=== PATIENT | female | born 1975 | race Caucasian/White ===

== ENCOUNTER 2021-10-07 00:43 | Emergency (ER) | payer OTHER, SELFPAY ==
[2021-10-07] VITALS (18 sets, daily range): BP systolic 113–152; BP diastolic 67–93; PULSE 100–157; RESP 12–28; TEMP 37.7–40.2; O2SAT 93–98
--- NOTE | ~2021-10-07 | XR_ITS ---
EXAMINATION: XR chest 1V portable DATE: 10/07/2021 01:54 INDICATION: Fever. Nausea and vomiting. TECHNIQUE: A single frontal view of the chest was obtained. COMPARISON: None. FINDINGS: The chest demonstrates clear lungs without pneumonia, pleural effusion, or pneumothorax. Th e heart size is normal. IMPRESSION: 1. No acute cardiopulmonary disease. Reviewed, dictated and finalized at location A.
--- NOTE | 2021-10-07 00:55 | ED.NAVMDI ---
HPI - Nausea/Vomiting/Diarrhea General Chief complaint: Nausea/Vomiting/Diarrhea Stated complaint: possible covid Time Seen by Provider: 10/07/21 00:55 Source: patient History of Present Illness HPI Narrative: 46-year-old female with DM presents to the ER with a 1 day history of -- nausea with vomiting -- fever -- profuse sweating -- diffuse abdominal pain --Headache history of recent exposure to COVID MD elicited complaint: nausea, vomiting and abdominal pain Pertinent past history: anorexia Onset (ago): day(s) ( started yesterday morning) Description of vomiting: watery Associated nausea: Yes Associated abdominal pain: Yes Location of pain: diffuse Pain consistency: constant Quality: aching Exacerbating factors: none Relieving factors: none Related Data Home Medications Medication Instructions Recorded Confirmed atorvastatin 20 mg tablet 1 tablet PO DAILY 10/07/21 10/07/21 glipizide 10 mg tablet 1 tablet PO DAILY 10/07/21 10/07/21 levothyroxine 150 mcg tablet 1 tablet PO DAILY 10/07/21 10/07/21 (Euthyrox) metformin 1,000 mg tablet 1 tablet PO BID 10/07/21 10/07/21 paroxetine HCl 20 mg tablet 1 tablet PO DAILY 10/07/21 10/07/21 ropinirole 0.25 mg tablet 1 tablet PO DAILY 10/07/21 10/07/21 Allergies Allergy/AdvReac Type Severity Reaction Status Date / Time methotrexate Allergy Unknown Verified 10/07/21 01:31 Review of Systems Review of Systems: All systems reviewed & are unremarkable except as noted in HPI and below Constitutional: Constitutional: Reports as per HPI and Reports no additional constitutional complaints Eyes: Eyes: Reports as per HPI and Reports no additional eye complaints ENT: Reports system reviewed and no additional complaints, except as documented and Reports as per HPI Cardiovascular: Cardiovascular: Reports as per HPI and Reports no additional cardiovascular complaints Respiratory: Respiratory: Reports as per HPI and Reports no additional respiratory complaints Gastrointestinal: Gastrointestinal: Reports as per HPI, Reports no additional gastrointestinal complaints, Reports abdominal pain, Reports diarrhea, Reports nausea and Reports vomiting Genitourinary: Genitourinary: Reports no additional female genitourinary complaints Musculoskeletal: Musculoskeletal: Reports no additional musculoskeletal complaints and Reports as per HPI Integumentary/Breasts: Skin/Breast: Reports system reviewed and no additional complaints, except as docu and Reports as per HPI Neurologic: Reports system reviewed and no additional complaints, except as documented, Reports as per HPI and Reports weakness ( headache) Psychiatric: Psychiatric: Reports no additional psychiatric complaints and Reports as per HPI Endocrine: Endocrine: Reports no additional endocrine complaints and Reports as per HPI Hematologic/Lymphatic: Hematologic/Lymphatic: Reports no additional hematologic/lymphatic complaints and Reports as per HPI Allergic/Immunologic: Allergic/Immunologic: Reports no additional allergic/immunologic complaints and Reports as per HPI [facility] Surgical History Surgical History (Updated 10/07/21 @ 01:50 by Bobby Coates MD) H/O: hysterectomy Hx of appendectomy Exam Const: General: ill appearing Nutritional Appearance: obese Orientation/consciousness: patient oriented x3 HENMT: Head: normal to inspection Ears: external ears normal General nose exam: Normal external nose present Face and sinus: normal facial exam Mouth: Yes Normal oral and palatal mucosa present ( dry mucous membranes) and Yes dry mucous membranes Throat: posterior oropharynx normal Eyes: Conjunctivae: conjunctivae normal Cornea: corneas normal Pupils: Equal, round and reactive pupils present Neck: Neck: normal visual inspection Chest: Chest palpation & inspection: normal inspection of the chest Resp: Effort & Inspection: normal respiratory effort Auscultation: clear to auscultation bilaterally Cardio: Rate
--- NOTE | 2021-10-07 00:57 | ECG_ITS ---
Measurements Intervals [place] Rate: 139 P: 52 OR: 132 QRS: 122 QRSD: 94 T: 47 QT: 315 QTc: 480 Interpretive Statements SINUS TACHYCARDIA RIGHT AXIS DEVIATION INCOMPLETE RIGHT BUNDLE BRANCH BLOCK DELAYED PRECORDIAL R/S TRANSITION ABNORMAL ECG Electronically Signed On 10-07-2021 6:02:19 CDT by Josue Irvin D.O.
[2021-10-07] MEDS: ONDANSETRON INJ 4 MG/2 ML VIAL IV PUSH (01:08)
[2021-10-07] MEDS: LACTATED RINGERS 1,000 ML 999 ML IV CONT ×2 (01:10→02:38)
[2021-10-07 01:20] LABS: Glucose Point of Care 330 mg/dl (65-105)
[2021-10-07] MEDS: ACETAMINOPHEN 325 MG TABLET 650 MG (01:37)
[2021-10-07] MEDS: INSULIN HUMAN REGULAR (*BKC) 100 UNITS/ML IV PUSH (01:41)
[2021-10-07] MEDS: SODIUM CHLORIDE 0.9% IV 1,000 ML 999 ML IV CONT (01:42)
[2021-10-07 01:49] LABS: Basophils Absolute Auto 0.02 K/mm3 (0.00-0.10); Basophils Percent Auto 0.3 % (0.0-1.0); Eosinophils Absolute Auto 0.04 K/mm3 (0.02-0.50); Eosinophils Percent Auto 0.6 % (1.0-6.0); Hematocrit 38.6 % (35.0-49.0); Hemoglobin 12.9 g/dL (12.0-15.0); Immature Granulocyte Absolute 0.04 K/mm3 (0.00-0.00); Immature Granulocyte Percent A 0.6 % (0.0-0.0); Lymphocytes Absolute Auto 0.62 K/mm3 (1.10-4.50); Mean Corpuscular HGB Conc 33.4 g/dL (32.0-36.0); Mean Corpuscular Hemoglobin 30.6 pg (27.0-31.0); Mean Corpuscular Volume 91.5 fL (78.0-102.0); Mean Platelet Volume 11.4 fl (9.2-11.8); Monocytes Absolute Auto 0.38 K/mm3 (0.10-0.90); Monocytes Percent Auto 6.1 % (2.0-11.0); Neutrophils Absolute Auto 5.1 K/mm3 (1.7-7.2); Neutrophils Percent Auto 82.4 % (50.0-70.0); Platelet Count Result 189 K/mm3 (150-420); Red Blood Count 4.22 M/mm3 (4.20-5.40); Red Cell Distribution Width 12.2 % (11.6-14.4); White Blood Count 6.2 K/mm3 (4.8-10.8)
--- NOTE | 2021-10-07 02:00 | PC.NURSE ---
Pt resting, VSS, HR now 110, pt reports feeling much better, Temp down to 100.4
[2021-10-07 02:03] LABS: Add Urine Microscopic? YES; Appearance Urine Clear (Clear); Bilirubin Urine Negative (Negative); Blood Urine 2+ (Negative); Color Urine Yellow (Yellow); Glucose Urine UA 3+ (Negative); Ketones Urine 1+ (Negative); Leukocyte Esterase Ur 1+ (Negative); Nitrate Urine Negative (Negative); Protein Urine 2+ (Negative); Specific Grav Ur 1.025 (1.010-1.020)
[2021-10-07 02:08] LABS: INR 1.1; Partial Thromboplastin Time 23.4 SEC (23.90-30.70); Prothrombin Time 11.7 Seconds (9.50-12.10)
[2021-10-07 02:13] LABS: Bacteria Urine 3+ /hpf; RBC Urine >75 /hpf (0-2); Squamous Epithelial Cell Urine Rare /hpf (Few); WBC Urine >75 /hpf (0-3)
[2021-10-07 02:18] LABS: Alanine Aminotransferase 71 U/L (14-59); Albumin Level 3.3 g/dL (3.4-5.0); Alkaline Phosphatase 114 U/L (46-116); Anion Gap 8 mmol/L (8-16); Aspartate Amino Transferase 17 U/L (15-37); Bilirubin,Total 0.6 mg/dL (0.00-1.00); Blood Urea Nitrogen 15 mg/dL (7-18); Calcium 9.2 mg/dL (8.5-10.1); Carbon Dioxide 26 mmol/L (21-32); Chloride 100 mmol/L (98-108); Estimated CRCL calculation 72 ml/min; Estimated Glomerular Filt Rate > 60; Glucose 348 mg/dL (70-99); Lipase 137 U/L (73-393); Magnesium 1.6 mg/dL (1.8-2.4); Osmolality Calculated 292 mOsm/kg (285-295); Sodium 134 mmol/L (136-145); Thyroid Stimulating Hormone 5.53 uIU/mL (0.36-3.74); Total Protein 7.3 g/dL (6.4-8.2); Troponin I 10.4 ng/L (0.00-60.4)
[2021-10-07 02:19] LABS: Lactic Acid Reflex 2.1 mmol/L (0.4-2.0)
[2021-10-07 02:20] LABS: Pregnancy On Board Control Positive; Urine Pregnancy Test Negative
[2021-10-07 02:25] LABS: Influenza A QL RT-PCR Negative (Negative); Influenza B QL RT-PCR Negative (Negative); SARS-CoV-2 RNA PCR Negative (Negative)
[2021-10-07] MEDS: KETOROLAC 30 MG/ML VIAL (*BKC) IV PUSH (02:37)
[2021-10-07] MEDS: levoFLOXacin 500 MG/D5W 100 ML 500 MG/100 ML BAG 100 MG IVPB (02:38)
--- NOTE | 2021-10-07 03:07 | PC.NURSE ---
Pt watching TV, angulo cath removed, VSS, IVF infusing and meds infusin per order. Pt reports feeling better, dry blankets given.
[2021-10-07] MEDS: ACETAMINOPHEN 325 MG TABLET 650 MG PO (03:32)
[2021-10-07 03:37] LABS: Glucose Point of Care 318 mg/dl (65-105)
[2021-10-07] MEDS: MAGNESIUM SULF 2 GM/WATER 50ML 2 GM/50 ML BAG IVPB (03:37)
[2021-10-07] MEDS: INSULIN HUMAN REGULAR (*BKC) 100 UNITS/ML 7 UNITS IV PUSH (03:43)
--- NOTE | 2021-10-07 04:25 | PC.NURSE ---
Pt d/c instructions given, BS 191, VSS, pt reports feeling much better.
[2021-10-07 04:28] LABS: Glucose Point of Care 191 mg/dl (65-105)
[2021-10-07 04:51] LABS: Reflex Lactic Acid Yes or No Add Lactic
== END 2021-10-07 04:58 | disposition home or self-care (01) ==
PROVIDERS: Emergency Provider Internal Medicine Critical Care Medicine
DX: E11.65 Type 2 diabetes mellitus with hyperglycemia (principal); E86.0 Dehydration; N39.0 Urinary tract infection, site not specified; K29.70 Gastritis, unspecified, without bleeding; Z20.822 Contact with and (suspected) exposure to COVID-19
CPT/HCPCS: 36415; 71045; 80053; 81001; 81025; 82948; 83605; 83690; 83735; 84443; 84484; 85025; 85610; 85730; 87502; 93005; 96361; 96365; 96367; 96375; 96376; 99284; A9270; C9803; J1815; J1885; J1956; J2405; J3475; J7030; J7120; U0003; U0005

== ENCOUNTER 2022-10-29 12:18 | Emergency (ER) | payer OTHER, SELFPAY ==
[2022-10-29] VITALS (18 sets, daily range): BP systolic 102–115; BP diastolic 68–85; PULSE 82–102; RESP 15–34; TEMP 36.9; O2SAT 95–99
--- NOTE | 2022-10-29 13:02 | ECG_ITS ---
Measurements Intervals [place] Rate: 85 P: 49 [place]: 162 QRS: 44 QRSD: 94 T: 61 QT: 374 QTc: 445 Interpretive Statements SINUS RHYTHM LOW QRS VOLTAGE IN PRECORDIAL LEADS [QRS DEFLECTION < 1.0 mV IN CHEST LEADS] BORDERLINE ECG COMPARED TO ECG 10/07/2021 01:26:13 PATIENT IS NO LONGER TACHYCARDIC Electronically Signed On 10-30-2022 12:49:00 CDT by Young Sotelo M.D.
[2022-10-29 13:13] LABS: Basophils Percent Auto 0.5 % (0.2-1.2); Eosinophils Absolute Auto 0.2 K/mm3 (0-0.3); Eosinophils Percent Auto 2.3 % (0-4.4); Hematocrit 40.5 % (37.0-47.0); Hemoglobin 13.6 g/dL (12.0-15.0); Immature Granulocyte Absolute 0.02 K/mm3 (0.00-0.031); Immature Granulocyte Percent A 0.2 % (0-0.5); Lymphocytes Percent Auto 18.3 % (18.3-44.2); Mean Corpuscular HGB Conc 33.6 g/dl (32-36); Mean Corpuscular Hemoglobin 31.3 pg (26-34); Mean Corpuscular Volume 93.3 fl (80-100); Mean Platelet Volume 10.7 fl (7.4-10.4); Monocytes Absolute Auto 0.8 K/mm3 (0.1-0.6); Monocytes Percent Auto 9.6 % (2.6-8.5); Neutrophils Absolute Auto 6.1 K/mm3 (1.3-6.7); Neutrophils Percent Auto 69.1 % (45.5-73.1); Platelet Count Result 209 k/mm3 (150-375); Red Blood Count 4.34 M/mm3 (4.2-5.4); White Blood Count 8.8 K/mm3 (4.5-10.0)
[2022-10-29 13:25] LABS: Alanine Aminotransferase 36 U/L (6-35); Albumin Level 3.9 g/dL (3.5-5.1); Alkaline Phosphatase 61 U/L (38-126); Anion Gap 8 mmol/L (8-16); Aspartate Amino Transferase 31 U/L (14-36); Bilirubin,Total 0.4 mg/dL (0.2-1.3); Blood Urea Nitrogen 14 mg/dL (7-17); Calcium 8.8 mg/dL (8.4-10.2); Carbon Dioxide 22 mmol/L (22-30); Chloride 103 mmol/L (98-107); Estimated CRCL calculation 108 ml/min; Estimated Glomerular Filt Rate > 60; Glucose 180 mg/dL (65-110); Potassium 3.7 mmol/L (3.4-5.0); Sodium 133 mmol/L (137-145)
--- NOTE | 2022-10-29 13:59 | ED.SYNCOPE ---
HPI - Syncope General Chief Complaint: Syncope Stated Complaint: syncopal Time Seen by Provider: 10/29/22 13:51 History of Present Illness HPI narrative: Patient is a 47-year-old female here after multiple syncopal episodes. She states she was getting her nails done and started feeling flushed and lightheaded. She then went out inside an ambulance was called. She reportedly had 3 syncopal episodes and EMS had put her in Trendelenburg due to low blood pressure. She denies any associated shortness of breath or chest pain during these events. She received 250 cc of IV fluids EN route by EMS. She does note that she feels completely asymptomatic at this time. She denies any prior cardiac history. She follows closely with her primary care doctor. No recent changes in her antihypertensives. She does note that she was started on insulin at her most recent doctor's appointment due to poorly controlled diabetes. She was feeling otherwise well this morning. Related Data Home Medications Medication Instructions Recorded Confirmed atorvastatin 20 mg tablet 1 tablet PO DAILY 10/07/21 10/07/21 glipizide 10 mg tablet 1 tablet PO DAILY 10/07/21 10/07/21 levothyroxine 150 mcg tablet 1 tablet PO DAILY 10/07/21 10/07/21 (Euthyrox) metformin 1,000 mg tablet 1 tablet PO BID 10/07/21 10/07/21 paroxetine HCl 20 mg tablet 1 tablet PO DAILY 10/07/21 10/07/21 ropinirole 0.25 mg tablet 1 tablet PO DAILY 10/07/21 10/07/21 Allergies Allergy/AdvReac Type Severity Reaction Status Date / Time methotrexate Allergy Unknown Verified 10/07/21 01:31 Review of Systems Review of Systems: CONSTITUTIONAL: Denies fever, chills, or sweats. EYES: Denies visual changes, redness, or discharge. ENT: Denies rhinorrhea, congestion, sore throat, or otalgia. CARDIOVASCULAR: Denies chest pain, palpitations, or edema. did have multiple episodes of syncope RESPIRATORY: Denies cough or dyspnea. GASTROINTESTINAL: Denies abdominal pain, nausea, vomiting, or diarrhea. GENITOURINARY: Denies dysuria or hematuria. SKIN: Denies rash or itching. MUSCULOSKELETAL: Denies back pain, joint pain, or myalgia. NEUROLOGIC: Denies headache, numbness, or weakness. PSYCHIATRIC: Denies anxiety or depression. [facility] Surgical History Surgical History (Updated 10/07/21 @ 01:50 by Bobby Coates MD) H/O: hysterectomy Hx of appendectomy Exam Narrative: GENERAL: Well-appearing, well-nourished, and in no acute distress. HEAD: Normocephalic, atraumatic. EYES: PERRLA and EOMI. ENT: Nares clear, no rhinorrhea or epistaxis. Mucous membranes moist. NECK: Supple. CHEST: Clear to auscultation. No respiratory distress. HEART: Regular rate and rhythm. No murmur heard. Normal peripheral pulses. ABDOMEN: Soft, nontender, nondistended, normal active bowel sounds. EXTREMITIES: Normal range of motion. No edema. SKIN: Warm, dry, no rash. NEURO: No focal deficits. Alert and oriented x3. No upper or lower extremity weakness, no facial droop. PSYCH: Normal mood and affect. Course Course Emergency Course: Chart review performed, no prior past medical history documented. Triage note states the patient is here after 3 syncopal episodes prior to arrival. 250 cc of IV fluids given by EMS. Vital signs reviewed, mild hypertension with an increased respiratory rate 34. Triage lab work reviewed, CBC within normal limits, electrolytes grossly within normal limits aside from a minimally elevated glucose at 180. EKG reviewed, sinus rhythm at 85, no ST segment changes consistent with STEMI, normal QTC. Patient seen evaluated, in no acute distress, asymptomatic. I do have some concern given the fact that she has multiple cardiac risk factors including hypertension, diabetes however she is adamant that her symptoms have resolved and she would not like to stay in the hospital. She is agreeable to a single troponin and admission should this be abnormal but otherwise she would prefer
[2022-10-29 14:50] LABS: Troponin I < 0.012 ng/mL (0.000-0.034)
== END 2022-10-29 15:28 | disposition home or self-care (01) ==
PROVIDERS: General Practice; Emergency Provider Student in an Organized Health Care Education/Training Program; PCP Family Medicine
DX: R55 Syncope and collapse (principal); E11.9 Type 2 diabetes mellitus without complications; Z79.4 Long term (current) use of insulin
CPT/HCPCS: 36415; 80053; 84484; 85025; 93005; 99284